=== PATIENT | female | born 1965 | race Caucasian/White ===

== ENCOUNTER 2018-12-25 18:48 | Emergency (ER) | payer OTHER ==
[~2018-12-25] VITALS: Ht 165.1 cm; Wt 74.8 kg
[~2018-12-25 18:48] MED LIST: ARTHRITIS PAIN650 M1 PO; CYCLOBENZAPRINE10 MG PO; DOLOGESIC 500-1 EACH PO; FLONASE16 GM NS; PEPCID20 MG PO; REGLAN 10 MG; TESSALON PERLE100 MG PO; VOLTAREM 50 MG PO; ZITHROMAX500 MG PO; ZOFRAN4 MG PO; ZYRTEC10 MG PO
[2018-12-25] MEDS ORDERED: ZOLOFT100 MG (18:53)
[2018-12-25] MEDS ORDERED: LEVOTHYROXINE25 MCG (18:53)
== END 2018-12-25 22:03 | disposition home or self-care (01) ==
LOC: ER 18:48
DX: B34.9 Viral infection, unspecified (principal)

== ENCOUNTER 2019-04-11 12:58 | Emergency (ER) | payer OTHER ==
[~2019-04-11] VITALS: Ht 160 cm; Wt 74.8 kg
[~2019-04-11 12:58] MED LIST changes: +LEVOTHYROXINE25 MCG; +ZOLOFT100 MG
[2019-04-11] MEDS ORDERED: ATIVAN0.5 MG (13:12)
[2019-04-11] MEDS ORDERED: AMBIEN5 MG (13:12)
== END 2019-04-11 18:10 | disposition home or self-care (01) ==
LOC: ER 12:58
DX: F41.0 Panic disorder [episodic paroxysmal anxiety] (principal)

== ENCOUNTER 2019-12-17 09:45 | Outpatient (CLI) | payer OTHER ==
[~2019-12-17 09:45] MED LIST changes: +AMBIEN5 MG; +ATIVAN0.5 MG
== END 2019-12-17 10:48 | disposition home or self-care (01) ==
LOC: RAD 09:45
PROVIDERS: ATTEND General Practice
DX: M25.512 Pain in left shoulder (principal); M25.522 Pain in left elbow; M79.602 Pain in left arm; M79.632 Pain in left forearm; D35.4 Benign neoplasm of pineal gland; L50.0 Allergic urticaria; M54.2 Cervicalgia

== ENCOUNTER 2019-12-29 11:35 | Emergency (ER) | payer OTHER ==
[~2019-12-29] VITALS: Ht 160 cm; Wt 74.8 kg
[2019-12-29] MEDS ORDERED: PEPCID AC20 MG PO (14:02)
[2019-12-29] MEDS ORDERED: BENADRYL25 MG PO (14:02)
[2019-12-29] MEDS ORDERED: ZYRTEC10 M3 PO (14:02)
== END 2019-12-29 14:49 | disposition home or self-care (01) ==
LOC: ER 11:35
DX: L27.1 Localized skin eruption due to drugs and medicaments taken internally (principal); T36.8X5A Adverse effect of other systemic antibiotics, initial encounter

== ENCOUNTER 2021-12-25 13:41 | Outpatient (CLI) | payer OTHER ==
[~2021-12-25 13:41] MED LIST changes: +BENADRYL25 MG PO; +PEPCID AC20 MG PO; +ZYRTEC10 M3 PO
== END 2021-12-25 13:57 | disposition home or self-care (01) ==
LOC: SONOGRAMA 13:41
PROVIDERS: ATTEND General Practice
DX: E04.1 Nontoxic single thyroid nodule (principal)

== ENCOUNTER 2022-01-31 13:20 | Outpatient (CLI) | payer OTHER ==
[~2022-01-31 13:20] MED LIST changes: +DEPO-MEDRO40 MG/1 ML IJ; +DICLOFENAC POTA50 MG PO; +NORFLEX100MG PO
== END 2022-01-31 13:30 | disposition home or self-care (01) ==
LOC: RAD 13:20
PROVIDERS: ATTEND Physical Medicine & Rehabilitation
DX: M25.549 Pain in joints of unspecified hand (principal)